=== PATIENT | male | born 1960 | race Caucasian/White ===

== ENCOUNTER 2017-02-16 22:26 | Emergency (ER) | payer BC ==
[~2017-02-16 22:26] MED LIST: ACET500CAP PO; ASAB PO; ATEN25 PO; CARMOL TOP; CIP5 PO; COREG3 PO; CRESTOR10 PO; CYMBALTA60 PO; ENDOCET1 TA3 PO; FISH-EPA1000 MG PO; FLAG500TAB PO; FLEX PO; HALF81 PO; HUMULIN; HUMULIN R 500; HUMULIN R U-500; HUMULIN R1 ML SC; JANUMET1 TA1 PO; LEVAQUIN750 MG PO; M-END WC PO; METHOC500B PO; METHOC750B PO; NEUR100 PO; NEUR600 PO; NOVREGPUMP SC; PERCOCET1 TA2 PO; PERCOCET1 TA4 PO; PR25 PO; PRAVACHOL40 MG PO; PRIN20 PO; PROTONIX PO; SEROQUEL1C PO; SLO-NIACIN500 MG PO; TRAZ100 PO; TRAZODONE300 MG PO; VITAMIN C100 MG PO; VITAMIN C500 M3 PO; XANAX1 MG PO; ZOFRAN ODT4 MG PO; ZOFRANODT8 PO; [UNRECOGNIZED DRUG - OTHER]
== END 2017-02-17 00:01 | disposition home or self-care (01) ==
LOC: ER 22:26
DX: M54.5 Low back pain (principal); G89.29 Other chronic pain; I10 Essential (primary) hypertension; F32.9 Major depressive disorder, single episode, unspecified; F41.9 Anxiety disorder, unspecified; E11.9 Type 2 diabetes mellitus without complications; Z95.1 Presence of aortocoronary bypass graft; Z88.5 Allergy status to narcotic agent; Z91.040 Latex allergy status; Z91.09 Other allergy status, other than to drugs and biological substances; Z79.82 Long term (current) use of aspirin; Z79.899 Other long term (current) drug therapy; W19.XXXA Unspecified fall, initial encounter
CPT/HCPCS: 72131; 96372; 99284; J1170; J2360; J2550